=== PATIENT | female | born 1960 | race Caucasian/White ===

== ENCOUNTER 2018-12-17 01:25 | Emergency (ER) | payer MEDICAID ==
[~2018-12-17] VITALS: Ht 165.1 cm; Wt 83.9 kg
[2018-12-17] MEDS ORDERED: IV NORMAL SALINE 1000 ML BAG IV ONE ×2 (02:00→03:00)
[2018-12-17] MEDS ORDERED: MECLIZINE HCL 25 MG TABLET PO ONE (02:00)
[2018-12-17] MEDS ORDERED: MECLIZINE HCL 25 MG TABLET ONE (02:17)
[2018-12-17 02:19] LABS: BASOPHILS % (AUTO) 0.6 % (0.0-2.0); EOSINOPHILS # (AUTO) 0.1 K/uL (0.0-0.7); EOSINOPHILS % (AUTO) 1.7 % (0.0-7.0); HEMATOCRIT 43.6 % (31.2-41.9); HEMOGLOBIN 14.7 g/dL (10.9-14.3); LYMPHOCYTES # (AUTO) 3.5 K/uL (20.0-40.0); LYMPHOCYTES % (AUTO) 50.4 % (20.5-51.5); MEAN CORPUSCULAR HGB CONC 34 g/dL (32.3-35.6); MEAN CORPUSCULAR VOLUME 91.7 fL (75.5-95.3); MONOCYTES # (AUTO) 0.4 K/uL (2.0-10.0); MONOCYTES % (AUTO) 5.8 % (0.0-11.0); NEUTROPHILS # (AUTO) 2.9 K/uL (1.8-8.9); NEUTROPHILS % (AUTO) 41.5 % (38.5-71.5); PLATELET COUNT (AUTO) 177 K/uL (179-408); RED BLOOD CELL COUNT(AUTO) 4.76 MIL/uL (3.63-4.92)
[2018-12-17 02:33] LABS: BILIRUBIN,DIRECT 0.1 mg/dL (0.0-0.2); BILIRUBIN,TOTAL 0.2 mg/dL (0.2-1.0); CREATININE 0.9 mg/dL (0.6-1.3); POTASSIUM 3.6 mmol/L (3.5-5.1); TOTAL PROTEIN, SERUM 6.7 g/dL (6.4-8.2)
--- NOTE | 2018-12-17 04:29 | NUR ---
Patient discharged to home in stable conditon. Written and verbal after care instructions given. Patient verbalizes understanding of instructions. ALL BELONGINGS W/ PT. PT SELF-AMBULATED W/O DIFFICUTLY. 20G IV ACCESS IN RFA REMOVED PRIOR TO D/C - INNER CANNULA INTACT.
[2018-12-17 04:32] VITALS: BP 144/86
== END 2018-12-17 04:32 | disposition home or self-care (01) ==
LOC: ER 01:27
DX: R00.1 Bradycardia, unspecified (principal); E86.0 Dehydration; H81.10 Benign paroxysmal vertigo, unspecified ear
CPT/HCPCS: 36415; 84443; 85025; 93005; A4663; J7030; J8597